=== PATIENT | female | born 1970 | race Caucasian/White ===

== ENCOUNTER → 2016-10-13 | Outpatient (CLI) | payer OTHER ==
--- NOTE | 2016-10-13 14:31 | DIAGNOSTIC IMAGING REPORT ---
LEFT SHOULDER MIN 2 VIEWS ROUTINE, LEFT HUMERUS MIN 2 VIEWS ROUTINE CLINICAL HISTORY: Left shoulder and arm pain. COMPARISON STUDY: None. FINDINGS: No fracture or dislocation within the left shoulder or left humerus. The left clavicle appears intact. There are 2 calcifications along the expected location of the supraspinatus tendon which measure 7 of 5 mm. This is consistent with calcific tendinitis. IMPRESSION: 1. No fracture or dislocation within the left shoulder or left humerus. 2. Supraspinatus calcific tendinitis. Electronically signed by: Harlan Carroll M.D. 10/13/2016 2:30 PM Dictated Date/Time: 10/13/2016 2:28 PM
== END | disposition home or self-care (01) ==
LOC: C.RAD1850 13:55
PROVIDERS: ATTEND Internal Medicine
DX: M79.603 Pain in arm, unspecified (principal); M75.32 Calcific tendinitis of left shoulder

== ENCOUNTER 2017-02-26 10:20 | Emergency (ER) | payer OTHER ==
[~2017-02-26] VITALS: Ht 162.6 cm; Wt 65.8 kg
[2017-02-26 10:35] VITALS: TEMP 36.7; Ht 162.6 cm; Wt 65.8 kg
--- NOTE | 2017-02-26 11:06 | EMERGENCY ROOM VISIT NOTE ---
History First contact with patient: 10:37 Chief Complaint: NEEDLE STICK Stated Complaint: NEEDLESTICK-WORK RELATED INJURY History of Present Illness The patient is a 47 year old female who presents to the Emergency Room via private vehicle with complaints of "needle stick, work related injury". 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 She states that a needle struck her in the left third digit. She notes minimal bleeding. She cleansed the region. Her tetanus is up-to- date. The source patient is known. Review of Systems A complete 6-point Review of Systems was discussed with the patient, with pertinent positives and negatives listed in the History of Present Illness. All remaining Review of Systems questions can be considered negative unless otherwise specified. Past Medical/Surgical History No pertinent. Social History Smoking Status: Never Smoker Patient is currently employed. Current/Historical Medications No Active Prescriptions or Reported Meds Physical Exam Vital Signs Date Time Temp Pulse Resp B/P (MAP) Pulse Ox O2 Delivery O2 Flow Rate FiO2 02/26/17 11:11 61 18 110/73 97 02/26/17 10:35 36.7 60 18 100/73 99 Room Air Physical Exam VITAL SIGNS - Vital signs and nursing notes were reviewed. Stable. GENERAL -47-year-old female appearing her stated age who is in no acute distress. Communicates well with provider and answers questions appropriately. SKIN - Without rashes. Small punctate region of erythema overlying the dorsal aspect of the left third digit. No active bleeding. Medical Decision & Procedures Medical Decision Patient was seen and evaluated as above. ED employee labs were obtained. I would declare this a significant needle stick, although transmission of patient blood to her blood is unlikely. However, the source patient will also be tested. I spoke with the attending regarding the source patient. Appropriate testing was initiated. Patient declined prophylaxis. A message was left for Chaya Frias regarding the patient and source patient. Patient is stable for discharge. In evaluation treatment this patient following differential diagnoses were entertained: Percutaneous needle stick injury, among others. Unfortunately I was pulled aside, to partake in another case and the patient was discharged prior to completing all of the appropriate paperwork. I completed the paperwork as best my ability, and have sent this to Ms. Chaya Frias. I personally tried to contact the patient, however no answer. The patient will need to sign the forms to provide HIV testing consent as well as follow-up. Patient verbally consented to baseline testing. She verbally declined prophylaxis. Impression Primary Impression: Needle stick injury of finger Departure Information Dispostion Home / Self-Care Condition GOOD Prescriptions No Active Prescriptions or Reported Meds Referrals Moses Vinson M.D. (PCP) Patient Instructions My [facility] Additional Instructions You were seen in the emergency Department for a needlestick. Testing has been completed and is to be for the patient. . Please watch for signs of infection to include redness, swelling, discharge or drainage of the wound. Please follow-up with [employer] [facility], Ms. Chaya Frias. If you have questions please call here at [phone]. Thank you have a great day.
[2017-02-26 11:11] VITALS: BP 110/73; PULSE 61; O2SAT 97
== END 2017-02-26 11:12 | disposition home or self-care (01) ==
LOC: C.EDB 10:21 → C.EDC 11:12
DX: S61.235A Puncture wound without foreign body of left ring finger without damage to nail, initial encounter (principal); W46.1XXA Contact with contaminated hypodermic needle, initial encounter; Y99.0 Civilian activity done for income or pay

== ENCOUNTER → 2017-03-07 | Outpatient (CLI) | payer OTHER ==
[2017-03-07 10:43] LABS: CHOLESTEROL/HDL RATIO 2.7
== END | disposition home or self-care (01) ==
LOC: C.LAB 09:14
PROVIDERS: ATTEND Physician Assistant Medical
DX: Z00.00 Encounter for general adult medical examination without abnormal findings (principal)

== ENCOUNTER → 2017-05-20 | Outpatient (CLI) | payer OTHER ==
[2017-05-20 16:44] LABS: BASO % 0.3 %; BASO ABS # 0.03 K/uL (0-0.2); COMPLETE YES; EOS % 1.1 %; HEMATOCRIT 38.6 % (37-47); IG% 0.2 %; LYMPH % 23.7 %; LYMPH ABS # 2.23 K/uL (1.2-3.4); MEAN CELL VOLUME 89.8 fL (80-100); MEAN CORPUSCULAR HEMOGLOBIN 30.5 pg (25-34); MEAN CORPUSCULAR HGB CONC 33.9 g/dl (32-36); MEAN PLATELET VOLUME 10.2 fL (7.4-10.4); MONO % 10.6 %; NEUT % 64.1 %; PLATELET COUNT 269 K/uL (130-400); WHITE BLOOD COUNT 9.42 K/uL (4.8-10.8)
[2017-05-20 16:55] LABS: ALT/SGPT 19 U/L (12-78); AST/SGOT 16 U/L (15-37); BLOOD UREA NITROGEN 12 mg/dl (7-18); BUN/CREATININE RATIO 17.4 (10-20); CALCIUM 9.1 mg/dl (8.5-10.1); CARBON DIOXIDE 27 mmol/L (21-32); CHLORIDE 103 mmol/L (98-107); GLUCOSE 85 mg/dl (70-99); POTASSIUM 3.8 mmol/L (3.5-5.1); SODIUM 137 mmol/L (136-145)
[2017-05-20 16:58] LABS: ALKALINE PHOSPHATASE 51 U/L (45-117)
== END | disposition home or self-care (01) ==
LOC: C.LABBFT 15:42
PROVIDERS: ATTEND Physician Assistant Medical
DX: R42 Dizziness and giddiness (principal)

== ENCOUNTER → 2017-08-19 | Outpatient (CLI) | payer OTHER ==
[2017-08-19 09:48] LABS: HEMOGLOBIN A1C 5.1 % (4.5-5.6)
== END | disposition home or self-care (01) ==
LOC: C.LAB 07:13
PROVIDERS: ATTEND Physician Assistant Medical
DX: E16.2 Hypoglycemia, unspecified (principal)

== ENCOUNTER → 2017-10-31 | Outpatient (CLI) | payer OTHER ==
[~2017-10-31] MED LIST: GADAVIST IV PRN
--- NOTE | 2017-10-31 16:17 | DIAGNOSTIC IMAGING REPORT ---
MRI OF THE BRAIN WITHOUT AND WITH IV CONTRAST CLINICAL HISTORY: R42 [id number] Tinnitus of both ears COMPARISON STUDY: No previous studies for comparison. TECHNIQUE: MRI of the brain was performed from the vertex to the skull base utilizing various T1 and T2 weighted sequences. Following the IV administration of 6 mL of Gadavist contrast, additional enhanced images were obtained. FINDINGS: Sagittal T1, axial diffusion, proton density and T2 weighted axial, coronal FLAIR, and pre and post axial T1-weighted images were acquired. These were supplemented with post gadolinium coronal T1 weighted images. No intra or extra-axial mass lesions are visualized. Axial diffusion-weighted images reveal no evidence of acute or subacute infarction. There is no evidence of ventricular dilatation. Proton density T2-weighted and FLAIR images reveal a nonspecific 4 mm focus of increased T2 signal within the left frontal white matter. There are no abnormal flow voids. There is no evidence of pathologic enhancement. No cerebellopontine angle masses are visualized. The 7th and 8th nerve complexes appear normal. IMPRESSION: 1. No evidence of intracranial mass 2. No evidence of acute or subacute infarction 3. Nonspecific 4 mm focus of increased T2 signal within the left frontal white matter. This is of doubtful acute clinical significance. Electronically signed by: Shorty Feldman M.D. 10/31/2017 4:16 PM Dictated Date/Time: 10/31/2017 4:13 PM
== END | disposition home or self-care (01) ==
LOC: C.MRI 15:07
PROVIDERS: ATTEND Psychiatry & Neurology Neurology
DX: H93.13 Tinnitus, bilateral (principal); R42 Dizziness and giddiness

== ENCOUNTER 2017-12-18 09:17 | Emergency (ER) | payer OTHER ==
[~2017-12-18] VITALS: Ht 162.6 cm; Wt 65.1 kg
[2017-12-18 09:20] VITALS: Ht 162.6 cm; Wt 65.1 kg
[2017-12-18] MEDS ORDERED: CEPHALEXIN MONOHYDRATE 250 MG CAP PO STA (09:31)
[2017-12-18] MEDS ORDERED: PRED20TA PO (09:34)
[2017-12-18] MEDS ORDERED: CEPH500C PO (09:34)
[2017-12-18 09:42] VITALS: BP 120/81; PULSE 74; TEMP 36.7; O2SAT 96
--- NOTE | 2017-12-18 09:45 | EMERGENCY ROOM VISIT NOTE ---
History Report prepared by Jan: Woo Matute Under the Supervision of: Dr. Dustin De Oliveira M.D. First contact with patient: 09:22 Chief Complaint: RASH Stated Complaint: RASH, ITCHY History of Present Illness The patient is a 47 year old female who presents to the Emergency Room with complaints of a constant rash beginning two days ago. The patient states that she developed a rash on her left arm and left ribs two days ago that she thought was poison. She notes that she went on a hike five days ago and believes that she might have gotten poison pierre then. She reports that her rash has since spread to her abdomen and is causing her pain. The patient states that her rash is painful and itchy. She notes that she does not have a history of diabetes. She rates her pain as a 3/10. Source of History: patient Onset: two days ago Position: arm (left), other (left ribs) Symptom Intensity: 3/10 Quality: other (rash) Timing: constant Note: The patient also complains of itchiness. Review of Systems See HPI for pertinent positives & negatives. A total of 6 systems reviewed and were otherwise negative. Past Medical & Surgical Medical Problems: (1) No chronic problems Family History No pertinent family history stated. Social History Smoking Status: Never Smoker Marital Status: Housing Status: lives with family Occupation Status: employed Current/Historical Medications Scheduled Cephalexin Monohydrate (Keflex), 500 MG PO QID Prednisone (Prednisone), 0 PO DAILY Allergies Coded Allergies: No Known Allergies (Unverified , 12/18/17) Physical Exam Vital Signs Date Time Temp Pulse Resp B/P (MAP) Pulse Ox O2 Delivery O2 Flow Rate FiO2 12/18/17 09:20 36.7 74 15 120/81 96 Room Air Physical Exam GENERAL: Sitting on stretcher in no distress. SKIN: No jaundice, slightly raised vesicular appearing rash along the medial proximal left bicep extending down across the axilla just lateral to the left breast, there is one blister that has opened and drained, some patchy surrounding erythema with slight warmth, erythema is primarily around the broken blister, no current drainage. NEURO: Awake, alert, oriented x3, no focal motor deficits. Medical Decision & Procedures Medications Administered Medications (Trade) Dose Ordered Sig/Javan Route Start Time Stop Time Status Last Admin Dose Admin Cephalexin Monohydrate (Keflex Cap) 500 mg NOW STAT PO 12/18/17 09:31 12/18/17 09:32 DC 12/18/17 09:36 500 MG Prednisone (PredniSONE TAB) 60 mg NOW STAT PO 12/18/17 09:31 12/18/17 09:32 DC 12/18/17 09:36 60 MG ED Course 924: The patient was evaluated in room A2. A complete history and physical exam was performed. 0931: Prednisone 60mg PO, Keflex Cap 500mg PO 36: Reevaluated the patient. Discussed results and discharge instructions: She verbalized understanding and agreement. The patient is ready for discharge. Medical Decision Differential diagnoses include: cellulitis, poison pierre, poison oak, contact dermatitis, insect sting/bite, and neurovascular compromise. Patient presents with an itchy somewhat vesicular rash. She was on a hike several days ago and she admits she took off her shirt to just a tank top like shirt during the hike. The rash appears to be consistent with contact dermatitis from likely, poison pierre or poison oak. There is one blister that has broken and there is some surrounding erythema and warmth. The patient states that the rash is itchy but painful in the area of the blister. I suspect the patient has contact dermatitis with a secondary cellulitis. She is being placed on prednisone and Keflex. Doses of each were given here orally. She was discharged and encouraged to return if worsening. Medication Reconcilliation Current Medication List: was personally reviewed by me Blood Pressure Screening Patient's blood pressure: Normal blood pressure Blood pressure disposition: Did not require urgent referral Impression Primary Impression: Contact dermatitis Additional Impression: Cellulitis Scribe Attestation The scribe's documentation has been prepared under my direction and personally reviewed by me in its entirety. I confirm that the note above accurately reflects all work, treatment, procedures, and medical decision making performed by me. Departure Information Dispostion Home / Self-Care Prescriptions Prednisone (Prednisone) 20 Mg Tab 0 PO DAILY, #18 TAB 3 DAILY FOR 3 DAYS, THEN 2 DAILY FOR 3 DAYS, THEN 1 DAILY FOR 3 DAYS. Prov: Dustin De Oliveira M.D. 12/18/17 Cephalexin Monohydrate (Keflex) 500 Mg Cap 500 MG PO QID, #28 CAP Prov: Dustin De Oliveira M.D. 12/18/17 Referrals Moses Vinson M.D. (PCP) Forms HOME CARE DOCUMENTATION FORM, IMPORTANT VISIT INFORMATION, WORK / SCHOOL INSTRUCTIONS Patient Instructions My [facility] Additional Instructions Keflex 4x per day for 1 week prednisone as directed--next dose tomorrow, Tuesday return for fever or if significantly worsening as we discussed wash all the clothing, laces, jackets, etc with hot water Problem Qualifiers
== END 2017-12-18 09:42 | disposition home or self-care (01) ==
LOC: C.EDB 09:17 → C.EDA 09:42
DX: L25.9 Unspecified contact dermatitis, unspecified cause (principal); L03.112 Cellulitis of left axilla; L03.114 Cellulitis of left upper limb

== ENCOUNTER → 2018-03-10 | Outpatient (CLI) | payer OTHER ==
[~2018-03-10] MED LIST changes: +CEPH500C PO; -GADAVIST IV PRN; +PRED20TA PO
== END | disposition home or self-care (01) ==
LOC: C.LABSPEC 10:12
PROVIDERS: ATTEND Physician Assistant Medical
DX: Z00.00 Encounter for general adult medical examination without abnormal findings (principal)